=== PATIENT | female | born 1930 | race Caucasian/White ===

== ENCOUNTER 2016-10-29 14:56 | Inpatient (IN) | payer OTHER ==
--- NOTE | ~2016-10-29 | OP ---
Record Of Operation [facility] [address] [place]. [address] NAME: SARA DALAL : 34 STATUS : ADM IN [facility]#: [id number] AGE: 86 ADM/REG DATE : 10/29/16 MR#: [id number] REPORT SERV DATE: 11/12/16 DICTATED BY: SHELLY ADAM DATE: 11/12/16 REPORT STATUS : Draft TRANSCRIBED BY: MODL DATE: 11/12/16 DATE OF PROCEDURE: PROCEDURE: Bronchoscopy with airway inspection and lavage. INDICATION FOR PROCEDURE: The patient has a persistent cough, wheezing, lower lobe atelectasis on the left side concerning for a foreign airway. PREOPERATIVE DIAGNOSIS: Left lower lobe atelectasis. POSTOPERATIVE DIAGNOSIS: Acute pneumonia. PROCEDURE NOTE: The patient was brought to the bronchoscopy suite, Anesthesia provided sedation and airway protection through an LMA. We began the procedure with placing the bronchoscope through the LMA. Vocal cords were normal, sprayed lidocaine over the vocal cords and intubated with placing about lidocaine down the trachea. The patient did have an anterior area of erythema on the trachea and the endobronchial mucosa. The patient had some significant secretions throughout the lungs bilaterally, but more prominent on the left side. These were suctioned, they are very tenacious. We had to take out the scope twice as they would not go through the suction channel. We then conducted a bronchoalveolar lavage of the left lower lobe, we had minimal airway trauma with minimal bleeding that was achieved for hemostasis at the end of the procedure. Therefore, lavage was done in the left lower lobe, no foreign airway abnormality was noted. The patient tolerated the procedure well with regard to vital signs. We then removed the bronchoscope, no damage or other abnormality was noted to the vocal cords. OUTCOME: Successful bronchoscopy for bronchoalveolar lavage and removal of secretions bilaterally left greater than right. PLAN: At this moment in time, continue to hold the Eliquis for another 24 hours. Please follow up sputum culture. The patient does have some drug allergies and therefore, we will go back to Levaquin for which she was on, if there is gram-positive cocci. I would recommend starting vancomycin in case there is MRSA. We would also start clindamycin and tailor the antibiotics depending on the sputum culture results. Therefore, at this moment in time, we will start clindamycin and Levaquin for gram-negative coverage. HFQ/MODL Shelly Adam MD / [id number] CC: Record Of Operation [address] [place] [address] NAME: DALALSARA Lopez : 34 STATUS : ADM IN [facility]#: [id number] AGE: 86 ADM/REG DATE : 10/29/16 MR#: [id number] REPORT SERV DATE: 11/12/16 DICTATED BY: SHELLY ADAM DATE: 11/12/16 REPORT STATUS : Draft TRANSCRIBED BY: JONATHAN DATE: 11/12/16 MD Nichole Hernandez MD
--- NOTE | ~2016-10-29 | DS ---
Discharge Summary [facility] [id number] [place]. [address] NAME: SARA DALAL : 34 STATUS : DIS IN PAT#: [id number] AGE: 86 ADM/REG DATE : 10/29/16 MR#: [id number] REPORT SERV DATE: 11/27/16 DICTATED BY: MEGAN RASMUSSEN DATE: 11/26/16 REPORT STATUS : Draft TRANSCRIBED BY: JONATHAN DATE: 11/26/16 Data Collection from hospitalization DISCHARGE DIAGNOSES: 1. Nonischemic cardiomyopathy. 2. Paroxysmal atrial fibrillation with rapid ventricular response. 3. Acute/chronic systolic congestive heart failure. 4. Chronic obstructive pulmonary disease. 5. Chronic kidney disease. 6. Sick sinus syndrome, status post permanent pacemaker. 7. Hypertension. 8. History of breast cancer. 9. 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 CONSULTATIONS: 1. MIRTHA Montes De Oca. 2. Sarah Dyson M.D. 3. Shelly Adam MD. 4. Sintia Guan MD. PROCEDURES: 1. Cardiac catheterization on 11/04/2016. 2. Transesophageal echocardiogram and cardioversion on 11/09/2016. 3. Bronchoscopy with airway inspection and lavage on 11/12/2016. 4. Modified barium swallow study on 11/08/2016. 5. Barium swallow esophagram on 11/08/2016. 6. CT scan of the chest without contrast on 11/09/2016. 7. CT scan of the neck without contrast on 11/09/2016. PATHOLOGY: Left lower lobe bronchus, bronchoalveolar lavage (thin prep) - mild squamous atypia, nondiagnostic. DISCHARGE MEDICATIONS: Ventolin two puffs via inhaler as needed, albuterol one nebulized inhalation as needed, Xanax 1 mg at bedtime, Eliquis 5 mg twice a day, aspirin 81 mg every morning, Lipitor 40 mg at bedtime, vitamin D 1000 units at bedtime, Restasis one drop twice a day as needed, Lanoxin 0.125 mg daily, Lexapro 10 mg at bedtime, Flonase nasal spray one spray nasally twice a day, Advair Diskus one puff via inhaler twice a day, Lasix 20 mg twice a day, Prinivil 5 mg daily, Toprol-XL 100 mg every morning, Prilosec 20 mg every morning, Aldactone 12.5 mg daily, and Ultram 50 mg twice a day as needed. CONDITION AT DISCHARGE: Stable. DISPOSITION: The patient was discharged home on a low-sodium, low-cholesterol, cardiac diet with 1500 mL fluid restriction and activities as instructed. She would follow up with Dr. Stevenson Agarwal as instructed. She would follow up with Dr. Jonas Orr on 12/10/2016. She would follow up with Dr. Nichole Correa seven days following discharge. She would follow up with Dr. Shelly Adam as instructed. She would follow up with Dr. Sintia Guan two to four weeks following discharge. Discharge Summary [facility] [address] [place]. [address] NAME: SARA DALAL : 34 STATUS : DIS IN [facility]#: [id number] AGE: 86 ADM/REG DATE : 10/29/16 MR#: [id number] REPORT SERV DATE: 11/27/16 DICTATED BY: MEGAN RASMUSSEN DATE: 11/26/16 REPORT STATUS : Draft TRANSCRIBED BY: JONATHAN DATE: 11/26/16 HOSPITAL COURSE: This is an 86-year-old female who has a history of paroxysmal atrial fibrillation. She has an approximate 10- to 14-day history of dizziness, dyspnea, weight gain, lower extremity edema, and nausea. About 14 days prior to this admission, the patient began to have symptoms of extreme fatigue, dizziness, and near syncope. She requested to be brought to [facility], but due to diversion status, was brought instead to [facility]. She was there, diagnosed apparently with asymptomatic bradyarrhythmia. According to her history, it sounds as if a temporary transvenous pacemaker was placed two weeks prior to this admission. She initially underwent placement of a dual-chamber permanent pacemaker the following Tuesday. She reports that she was experiencing weight gain and dyspnea at the time of her hospitalization. She continued to have these symptoms at the time of her hospital discharge. She reports that she has never returned to her baseline health status since discharge from [facility]. She presented to the Cardiology Clinic on the day of this admission and was found to have atrial fibrillation with rapid ventricular response. She was also complaining of dyspnea, nausea, and possibly dark, tarry bowel movements. She was complaining of some abdominal pain on the day prior to this admission, but she says this has now resolved. She was sent to the [facility] Emergency Room for further evaluation due to rapid ventricular response and apparent decompensated heart failure. She was admitted to the hospital for further evaluation and treatment. Upon admission, she had evidence of volume overload. Creatinine level was 1.05. Troponin I was normal at less than 0.02. She was started on IV Bumex. Transthoracic echocardiogram would be obtained to ensure that the patient's left ventricular systolic function had not worsened since 2013. Given the patient's abnormal EKG as well as her advanced age, it may be reasonable to pursue some type of workup for myocardial ischemia. According to the patient, she has never had a cardiac catheterization and has no recent stress testing. She denies chest pain, however. Myocardial infarction had been excluded. A thyroid function panel was going to be checked. Cardizem drip was begun for rate control. We would consider increasing the patient's metoprolol dose as necessary, and we would consider screening for sleep apnea. She has a urinary tract infection and was started on Bactrim DS. She had a recent pacemaker implantation. The following day, she felt much improved. She remained on Cardizem drip. Her heart rate was in the 80 to 90 [id number] range. Toprol-XL was increased. Cardizem drip was being weaned as tolerated. Bumex was continued. On 10/31/2016, she felt improved. She was in atrial fibrillation with demand pacing. Bumex was held secondary to increasing creatinine. Creatinine level was now 1.62. She still appeared to be volume overloaded. Bactrim was going to be stopped at this time. Because of the elevated creatinine, lisinopril was also held. The following day, she still had severe shortness of breath. She remained in atrial fibrillation. Creatinine level was 1.99. Metoprolol was continued. She was seen by MIRTHA Montes De Oca, regarding acute kidney injury. On arrival, her creatinine level was 0.9. She has been diuresed since arrival. She does have some urinary incontinence this visit. Her urination was without difficulty. She has been diuresed and her breathing was much better. She felt much better. There was concern for urinary tract infection on arrival. There was a high white blood cell count and rare bacteria. The urine culture was contaminated. She had been placed on Bactrim. She said she had taken Bactrim before without any issues. Creatinine had risen to 1.9. She was felt to have acute kidney injury, probably multifactorial and certainly could be because of Bactrim. Urine was going to be checked for eosinophils. Urine studies were going to be Discharge Summary [facility] [address] [place]. [address] NAME: SARA DALAL : 34 STATUS : DIS IN PAT#: [id number] AGE: 86 ADM/REG DATE : 10/29/16 MR#: [id number] REPORT SERV DATE: 11/27/16 DICTATED BY: MEGAN RASMUSSEN DATE: 11/26/16 REPORT STATUS : Draft TRANSCRIBED BY: JONATHAN DATE: 11/26/16 checked, and we would quantify her proteinuria. A bladder scan would be performed postvoid. She still had a bit of edema. Diuretics would be restarted the following day. The Bactrim had been stopped. On 11/02/2016, her condition had generally improved. Creatinine level was now 1.37. Diuretics were going to be restarted. A swallow evaluation was requested. On 11/03/2016, she still had a cough. Speech-Language Pathology performed a bedside swallow study. There were no overt signs or symptoms of aspiration. Aspiration precautions were in place. She had no complaints of chest pain. She had developed a frequent productive cough. Her edema was greatly improved. Echocardiogram had shown an ejection fraction of 40%. There was moderate right ventricle dysfunction. Telemetry revealed atrial fibrillation in the 90s-100s. Tessalon Perles were going to be provided. On 11/04/2016, she continued to cough, but it was slightly better. She was able to lie flat. She had no chest pain or shortness of breath at rest except when coughing. She remained in atrial fibrillation with heart rate ranging between 70s and 110s. She was being transitioned to oral diuresis. Her acute kidney injury/chronic kidney disease had resolved. The next day, her cough was getting more productive. She was more dyspneic. She remained afebrile. Eliquis had been resumed. Cardiac catheterization had been performed. The patient has nonischemic cardiomyopathy with an ejection fraction of 40%. There was only mild LAD stenosis. On 11/06/2016, she still had a productive cough. Creatinine level was 1.03. Diltiazem drip was being weaned. Digoxin was added. Eliquis was continued. Lasix was adjusted. A trial of Mucinex was going to begin. She was seen by Dr. Sarah Dyson regarding COPD exacerbation with acute bronchitis. The patient had never been a smoker. 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 She currently denied any chest pain or more increasing shortness of breath than usual. Chest x-ray showed some bilateral pleural effusions and some atelectatic changes on the bibasilar, and no acute infiltrate could be appreciated. It was felt that the patient has chronic obstructive pulmonary disease exacerbation with acute bronchitis. She was going to be placed on oxygen, IV steroids, and IV Solu-Medrol. DuoNebs would also be provided with aggressive pulmonary toilet and Dulera, Mucinex, Nasonex, and Tessalon Perles as needed. We would check a sputum Gram stain and culture. On 11/08/2016, a modified barium swallow study was performed. The patient exhibited deep penetration of thin liquids via straw. Aspiration precautions remained in place. Modified barium swallow esophagram was also performed. 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 Steroids were decreased. On 11/09/2016, transesophageal echocardiogram cardioversion was performed. There was no left atrial or left atrial appendage thrombus. There was moderate biatrial enlargement. There was normal left ventricular size with moderate systolic dysfunction and ejection fraction of 40%. There was mildly enlarged right ventricle with low normal systolic function. There was a successful cardioversion to ventricular-paced rhythm. A CT scan of the chest without contrast was also performed. The patient still had a cough. Steroids were decreased. She had no shortness of breath or palpitations. A CT scan of the neck without contrast was also performed. On 11/10/2016, she was doing well. She had no acute complaints. Her cough had improved. Supportive care continued. She said she was feeling great until the coughing spells would happen. She had a difficult time eating her lunch due to coughing. Eliquis, metoprolol, and digoxin were continued. Oral Lasix was also continued as well as her breathing treatments. She was seen in consultation by Dr. Shelly Adam regarding left lower lobe Discharge [address] [place]. [address] NAME: SARA DALAL : 34 STATUS : DIS IN PAT#: [id number] AGE: 86 ADM/REG DATE : 10/29/16 MR#: [id number] REPORT SERV DATE: 11/27/16 DICTATED BY: MEGAN RASMUSSEN DATE: 11/26/16 REPORT STATUS : Draft TRANSCRIBED BY: MODLeigh DATE: 11/26/16 pneumonia and/or mucus plug. The patient had received Solu-Medrol and inhalers due to non- improvement in her symptoms. The CT scan had shown an abnormality in the right lower lobe, which looked to be consistent with possible mucus plugs for aspiration versus pneumonia. This was a new finding. CT scan of the chest showed evidence of previous histoplasmosis, possible aspiration or mucus plug in the left lower lobe with left lower lobe complete atelectasis and minimal surrounding effusion. She seems to have a clinical syndrome with chronic aspiration even prior to this. It was unclear if she had aspirated some food contents. At this moment in time, he wanted to conduct a more conservative approach with nebulizers for which the patient was on, but wanted to add EzPAP treatment with flutter valve. The patient was already receiving steroids. Chest x-ray would be performed in 24 hours, and if the patient still had left lower lobe atelectasis, we would then transition to a bronchoscopy for treatment. We would have the patient walk every six hours as she was getting weaker. Unfortunately, aspiration in this age group with the multiple comorbid conditions of heart failure, atrial fibrillation, and chronic kidney disease with what seems to be chronic hypercapnia, the patient is not the best bronchoscopy candidate, which is why we were choosing a more conservative approach. A long discussion was held with the patient's family. If the patient was unable to clear the mucus plug on her own for which she was having an almost continuous cough and showed no quality of life, we would then, therefore, proceed with bronchoscopy possibly in 48 hours from now if she did not get better with the above treatment. She was evaluated by Physical Therapy. On 11/12/2016, the patient had a persistent cough, wheezing, and lower lobe atelectasis on the left side concerning for a torn airway. It was felt that she should undergo bronchoscopy with airway inspection and lavage. She was taken to the bronchoscopy suite by Dr. Shelly Adam where she underwent the above-mentioned procedure. She tolerated this well, and there were no complications. The patient was in a normal sinus rhythm. Eliquis was being held at this time. Lasix was continued. Lisinopril was increased. On 11/13/2016, the patient was seen by Dr. Sintia Guan regarding dysphagia. Barium swallow earlier this admission had shown some moderate tertiary contraction and a small sliding hiatal hernia. There was no esophageal stricture seen. The barium tablet had passed through without any delay. The symptomatic dysphagia did not appear to be any significant aspiration on modified barium swallow; therefore, there was no indication for percutaneous endoscopic gastrostomy tube. No esophageal stricture was seen on barium swallow. There was no indication for dilations. We would continue proton-pump inhibitor as this may be a typical symptom of chronic reflux as well. She may have some dysmotility seen with her moderate tertiary contractions. However, there were no truly significant effective medications to help with this. Continued followup with Speech Pathology was recommended. The patient was instructed to chew her food very well and this can be followed by liquids. She seemed to be feeling better. Mouth sores had improved with swish and swallow. Metoprolol and lisinopril were continued. Spironolactone was added. Nystatin swish and swallow had been added to her regimen. The following day, she continued to have a GI bleed, but it was slowing down. She was able to lie flat without dyspnea. She was in a paced rhythm. Discharge planning was performed. On 11/15/2016, she was wanting to go home. She was alert and cooperative. It was felt that her acute lower GI bleed was likely hemorrhoidal. Hemoglobin and hematocrit remained stable. She said she felt like she was back to her normal self. Discharge instructions were given. Due to her improved and stable condition, she was discharged home with the above-stated instructions. Discharge Summary [address] [place]. [address] NAME: SARA DALAL : 34 STATUS : DIS IN PAT#: [id number] AGE: 86 ADM/REG DATE : 10/29/16 MR#: [id number] REPORT SERV DATE: 11/27/16 DICTATED BY: MEGAN RASMUSSEN DATE: 11/26/16 REPORT STATUS : Draft TRANSCRIBED BY: JONATHAN DATE: 11/26/16 Information collected by: Mikayla Brandt I submit the above information as my discharge summary. OZ/JONATHAN Megan Rasmussen MD / [id number] CC: MD Nichole Hernandez MD Jessica Craig, MIRTHA Guan MD
--- NOTE | ~2016-10-29 | HP ---
History And Physical [facility] [address] [place]. [address] NAME: SARA BOWER : 32 STATUS : ADM IN [facility]#: [id number] AGE: 86 ADM/REG DATE : 10/29/16 MR#: [id number] REPORT SERV DATE: 10/30/16 DICTATED BY: MEGAN RASMUSSEN DATE: 10/29/16 REPORT STATUS : Draft TRANSCRIBED BY: MODL DATE: 10/29/16 DATE OF ADMISSION: 10/29/2016 CARDIOLOGY ADMISSION HISTORY AND PHYSICAL IDENTIFYING DATA: The patient is an 86-year-old woman with a history of paroxysmal atrial fibrillation. CHIEF COMPLAINT: Approximately 10 to 14-day history of dizziness, dyspnea, weight gain, lower extremity edema, and nausea. HISTORY OF PRESENT ILLNESS: Ms. Bower is an 86-year-old woman who is a patient of Jonas Orr. The patient apparently was in her usual state of health until about 14 days ago. The patient was having symptoms of extreme fatigue, dizziness, and near syncope. She requested to be brought to [facility], but due to diversion status was brought instead to [facility]. There, the patient was apparently diagnosed with asymptomatic bradyarrhythmia. According to the patient's history, it sounds as if a temporary transvenous pacemaker was placed Tuesday 2 weeks ago. The patient eventually underwent placement of a dual-chamber permanent pacemaker the following Tuesday. The patient reports that she was experiencing weight gain and dyspnea at the time of her hospitalization. She continued to have these symptoms at the time of hospital discharge. The patient reports that she has never returned to her baseline health status since discharge from [facility]. She presented to Cardiology Clinic today. She was found to have atrial fibrillation with a rapid ventricular response. She was also complaining of dyspnea, nausea, and possibly dark tarry bowel movement. The patient was complaining of some abdominal pain yesterday, but reports that today this has resolved. The patient was sent to [facility] Emergency Room for further evaluation due to her rapid ventricular response and apparent decompensated heart failure. PAST MEDICAL HISTORY: 1. Paroxysmal atrial fibrillation. 2. Chronic systolic heart failure with baseline ejection fraction of 45% based on an echocardiogram from the year 2013. 3. History of breast cancer, status post surgical care and tamoxifen. 4. Hypertension. 5. Frequent urinary tract infections. 6. COPD. 7. 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 PAST SURGICAL HISTORY: 1. Bilateral mastectomy. 2. Bilateral total knee replacement surgery. 3. Recent dual-chamber pacemaker as noted above. 4. Implantation of a neurostimulator for apparent incontinence/frequent bowel movements. 5. Cholecystectomy. 6. Appendectomy. History And Physical [address] [address] NAME: SARA BOWER : 32 STATUS : ADM IN [facility]#: [id number] AGE: 86 ADM/REG DATE : 10/29/16 MR#: [id number] REPORT SERV DATE: 10/30/16 DICTATED BY: MEGAN RASMUSSEN DATE: 10/29/16 REPORT STATUS : Draft TRANSCRIBED BY: JONATHAN DATE: 10/29/16 7. Back surgery, not otherwise specified. FAMILY HISTORY: Negative for early coronary heart disease or sudden cardiac . SOCIAL HISTORY: The patient has no known history of tobacco, alcohol, or drug use. She is . ALLERGIES: THE PATIENT HAS DOCUMENTED ALLERGIES TO AMOXICILLIN, CEFTIN, AND CLAVULANIC ACID. SHE HAS HAD ADVERSE REACTIONS TO OPIOID AND OPIOID ANALOGS. HOME MEDICATIONS: 1. Albuterol inhaler 2 puffs q.2 hours as needed for shortness of breath. 2. Albuterol nebulizers daily as needed for shortness of breath. 3. Xanax 1 mg p.o. at bedtime. 4. Eliquis 5 mg p.o. twice daily. 5. Aspirin 81 mg p.o. daily. 6. Vitamin D 1000 units p.o. at bedtime. 7. Cyclosporine 0.05% ophthalmologic drops twice daily as needed for dryness. 8. Lexapro 10 mg p.o. at bedtime. 9. Advair Diskus 250/50 mcg 1 puff twice daily. 10.Lisinopril 10 mg p.o. q.a.m. 11.Metoprolol succinate 100 mg p.o. q.a.m. 12.Omeprazole 20 mg p.o. q.a.m. 13.Tramadol 50 mg p.o. twice daily as needed for pain. REVIEW OF SYSTEMS: A complete 12-system review was performed. This is negative for dysuria, but positive for increased urinary frequency. The patient denies fever or chills. She denies vomiting, but does report nausea as noted above. The remainder of the 10-system review is noncontributory except for the pertinent positives and negatives noted in the history of present illness above. PHYSICAL EXAMINATION: VITAL SIGNS: Temperature is 98.2 degrees Fahrenheit, blood pressure is 120/71 mmHg, heart rate is currently 120 beats per minute and irregularly irregular, respirations 20, oxygen saturation is 100% on a 2 L nasal cannula. CONSTITUTIONAL: The patient is an overweight elderly white woman, who appears fatigued, but is in no acute distress. The patient is breathing easily and is able to speak in complete sentences. EYES: PERRL, EOMI, clear conjunctiva. HEAD/MNT: NCAT with moist mucous membranes and grossly normal hard and soft palate. CARDIOVASCULAR: There is an irregularly irregular rhythm with a variable S1 and a physiologically split second heart sound. No significant murmurs, rubs, or gallops are noted. The jugular venous pressure does appear to be grossly elevated to approximately 14 cm. NECK: There appears to be a mild hematoma in the patient's right neck at the site of her recent transvenous pacemaker. This is soft. The neck is otherwise supple with normal range History And Physical [address] [address] NAME: SARA BOWER : 32 STATUS : ADM IN [facility]#: [id number] AGE: 86 ADM/REG DATE : 10/29/16 MR#: [id number] REPORT SERV DATE: 10/30/16 DICTATED BY: MEGAN RASMUSSEN DATE: 10/29/16 REPORT STATUS : Draft TRANSCRIBED BY: JONATHAN DATE: 10/29/16 of motion. PULMONARY: The lungs are grossly clear to auscultation bilaterally with slightly decreased air movement globally. No rales are appreciated. There is no dullness to percussion. ABDOMINAL: There is [id number] abdominal distention, with no tenderness to palpation. Bowel sounds are present and normoactive. No organomegaly is noted. EXTREMITIES: There is 2+ pitting edema below the knees bilaterally. MUSCULOSKELETAL: Grossly normal strength and range of motion in all extremities INTEGUMENTARY: Skin appears intact with no bruises, wounds or active lesions noted NEURO/PSYC: Alert and oriented x3, with no dysarthria, facial droop or lateralizing weakness noted. ANTERIOR CHEST WALL: The patient's left-sided pacemaker implant site appears normal, with a well-healed wound, and no evidence of erythema, fluctuance, or erosion. 12-LEAD EKG: The 12-lead EKG shows atrial fibrillation with a rapid ventricular response. Ventricular rate is 119 beats per minute. There is poor anterior R-wave progression. Previous anterior myocardial infarction cannot be excluded. There are nonspecific ST/T-wave abnormalities. There is low voltage in the limb leads noted. CHEST X-RAY: The chest x-ray shows a dual-chamber pacemaker with leads in appropriate positions in the right atrium and right ventricle. There is no acute cardiopulmonary process noted. There is no evidence of pneumothorax. LABORATORY DATA: Electrolytes show a sodium of 148, potassium 4.4, chloride is 110, CO2 of 28, BUN 29, creatinine is 1.05, glucose 96, calcium is 8.9, magnesium 2.2. Troponin I is normal at less than 0.02. Cell count show a white blood cell count of 7.7, hemoglobin 12.3, hematocrit 39, platelets 146, INR is 1.6, PTT 30. B-type natriuretic peptide is grossly elevated at 1209. Urinalysis shows a hazy appearance with 100 protein, 2.0 urobilinogen, moderate leukocyte esterase. There were 6 red blood cells per high-powered field, 38 white blood cells per high-powered field, rare bacteria and 3 epithelial cells noted. ASSESSMENT AND PLAN: 1. Acute on chronic systolic congestive heart failure: The patient has evidence of volume overload. In addition to rate control for the patient's atrial fibrillation, she will be started on Bumex 1 mg IV q.12 hours as tolerated. A transthoracic echocardiogram will be obtained, to ensure the patient's left ventricular systolic function is not worsened since the year 2013. Given the patient's abnormal EKG, as well as her advanced age, it may be reasonable to pursue some type of workup for myocardial ischemia. According to the patient, she has never had a cardiac catheterization, and has had no recent stress testing. She denies chest pain, however. Myocardial infarction has been excluded. 2. Atrial fibrillation with rapid ventricular response: We will check a thyroid function panel. The patient will be started on a Cardizem drip for rate control. We will consider increasing the patient's metoprolol dose if necessary. Consider screening for sleep apnea. 3. Urinary tract infection: The patient apparently has a penicillin allergy. She will be History And Physical [address] [address] NAME: SARA BOWER : 32 STATUS : ADM IN [facility]#: [id number] AGE: 86 ADM/REG DATE : 10/29/16 MR#: [id number] REPORT SERV DATE: 10/30/16 DICTATED BY: MEGAN RASMUSSEN DATE: 10/29/16 REPORT STATUS : Draft TRANSCRIBED BY: JONATHAN DATE: 10/29/16 started on Bactrim DS 1 tablet q.12 hours x7 days, given a possible complicated urinary tract infection. 4. Recent pacemaker implantation: Records will be requested from [facility] to clarify the details of the patient's recent admission and pacemaker implantation. REBA/JONATHAN Megan Rasmussen MD / [id number]
--- NOTE | ~2016-10-29 | OP ---
Record Of Operation [facility] [address] [place]. [address] NAME: SARA DALAL : 32 STATUS : ADM IN PAT#: [id number] AGE: 86 ADM/REG DATE : 10/29/16 MR#: [id number] REPORT SERV DATE: 11/09/16 DICTATED BY: ISRA HERRERA DATE: 11/09/16 REPORT STATUS : Draft TRANSCRIBED BY: MODL DATE: 11/09/16 DATE OF PROCEDURE: 11/09/2016 FELICIA CARDIOVERSION REPORT INDICATIONS: An 86-year-old female with atrial fibrillation and a history of permanent pacemaker placement. Informed consent was obtained, signed on the chart prior to proceeding. A time-out was performed. Sedation was per Anesthesia and esophageal intubation was without difficulty. TECH: TD. STUDY QUALITY: The quality of study was adequate. Please refer to the full transthoracic echocardiogram report from 10/30/2016 for further details. FINDINGS: 1. Left atrium is moderately dilated. The left atrial appendage was large and multilobed. There is no thrombus identified. There are prominent pectinates. Left atrial appendage color Doppler findings were normal with spectral Doppler velocity of 30-40 cm/second. 2. The left ventricle was normal in size with visually estimated LVEF of 40%. There was global hypocontractility. 3. The right atrium is moderately dilated. The superior and inferior vena cava appeared normal. Pacemaker lead is noted. 4. The right ventricle is mildly enlarged with low normal systolic function. VALVES: 1. The aortic valve morphology is trileaflet. The leaflets were thickened with adequate mobility. Aortic regurgitation was not assessed. 2. The mitral morphology is normal with mildly thickened leaflets. The leaflets were fully mobile. Mitral regurgitation was not assessed. There is no prolapse. 3. The pulmonic valve was grossly normal. Pulmonic regurgitation was not assessed. 4. The tricuspid valve morphology was normal with fully mobile leaflets. Tricuspid regurgitation was not assessed. OTHER: The interatrial septum was evaluated with multiple angulations and was intact by visual inspection with no evidence of interatrial shunt seen by color Doppler. There is no pericardial effusion. There was a trivial pleural effusion seen. The descending thoracic aorta was normal in caliber with no aneurysmal dilatation and no dissection seen. CARDIOVERSION: A single synchronized 200 joule biphasic energy shock was delivered with the pads in the anterior-posterior position with successful cardioversion from atrial fibrillation to a ventricular paced rhythm. Device interrogation is pending. Record Of Operation [facility] [address] [place]. [address] NAME: SARA DALAL : 32 STATUS : ADM IN PAT#: [id number] AGE: 86 ADM/REG DATE : 10/29/16 MR#: [id number] REPORT SERV DATE: 11/09/16 DICTATED BY: ISRA HERRERA. DATE: 11/09/16 REPORT STATUS : Draft TRANSCRIBED BY: JONATHAN DATE: 11/09/16 CONCLUSIONS: 1. No left atrial or left atrial appendage thrombus. 2. Moderate biatrial enlargement. 3. Normal LV size with moderate systolic dysfunction, EF 40%. 4. Mildly enlarged RV with low normal systolic function. 5. Successful cardioversion to ventricular paced rhythm. AEA/RUBENL Isra Herrera M.D. / [id number] CC: MD Nichole Hernandez MD
--- NOTE | ~2016-10-29 | CN ---
Consultation Report [facility] [address] [place]. [address] NAME: SARA BOWER : 32 STATUS : ADM IN PAT#: [id number] AGE: 86 ADM/REG DATE : 10/29/16 MR#: [id number] REPORT SERV DATE: 11/01/16 DICTATED BY: DATE: REPORT STATUS : Draft TRANSCRIBED BY: MODL DATE: 11/01/16 CONSULTATION DATE OF CONSULTATION: REASON FOR CONSULTATION: Acute kidney injury. HISTORY OF PRESENT ILLNESS: Ms. Bower is an 86-year-old white female with no history of kidney disease in the past, who recently underwent a pacemaker placement at [facility] for symptomatic bradycardia and states that she has not been feeling well since with increasing shortness of breath and nausea, presented to the hospital and was found to be in CHF exacerbation. Creatinine on arrival was 0.9. She has been diuresed since arrival. She has had Afib with RVR. Rate is better controlled, but still not below 100. She has had some low blood pressures in the 90s. She does have some urinary incontinence, but states her urination is without difficulty. She has been diuresed and her breathing is much better. She feels much better, and there was concern over urinary tract infection on her arrival and urine with high white blood cell count and rare bacteria. Culture is contaminated. She was placed on Bactrim. She states she has had Bactrim before without any issues. Creatinine has gone up to 1.9, and we have been asked to see the patient in consultation. PAST MEDICAL HISTORY: Paroxysmal atrial fibrillation, bradycardia with pacemaker, UTIs, hypertension, histoplasmosis, COPD, history of CHF with EF of 40%, breast cancer, bilateral mastectomy, cholecystectomy, appendectomy, and bilateral knee replacements. FAMILY MEDICAL HISTORY: No end-stage renal disease. SOCIAL HISTORY: She is , lives with her . No tobacco, alcohol, or illicit drug use. ALLERGIES: AUGMENTIN AND CEFTIN WITH REACTIONS TO PAIN MEDICATIONS. MEDICATIONS: Medications at the time of consultation: Xanax, Eliquis, aspirin, vitamin D, Lexapro, Toprol, and Protonix. REVIEW OF SYSTEMS: A 12-point review of systems is obtained and negative with the exception of that in HPI. PHYSICAL EXAMINATION: VITAL SIGNS: Temperature 96.6, blood pressure 118/64, pulse 103, respiratory rate 20, and O2 saturation is 93%. GENERAL: This is a pleasant, cooperative white female. She is awake, alert, and oriented, in no acute distress. Answers questions appropriately. HEENT: Normocephalic and atraumatic. Conjunctivae clear. Sclerae anicteric. Pupils are Consultation Report [place] [id number]. [address] NAME: SARA BOWER : 32 STATUS : ADM IN [facility]#: [id number] AGE: 86 ADM/REG DATE : 10/29/16 MR#: [id number] REPORT SERV DATE: 11/01/16 DICTATED BY: DATE: REPORT STATUS : Draft TRANSCRIBED BY: MODL DATE: 11/01/16 equal and round. Oral mucosa is moist. NECK: Supple. Neck veins flat. RESPIRATIONS: Even and unlabored. Breath sounds clear to auscultation. HEART: Rate is irregularly irregular. ABDOMEN: Soft, nontender. Bowel sounds active. No masses or hepatosplenomegaly. No bruits. No CVA tenderness. BACK: Within normal limits. EXTREMITIES: She has 2+ pitting edema. SKIN: Warm, dry, and intact. No unusual rashes or skin lesions. NEUROLOGIC: No focal deficits. Mood and affect, pleasant appropriate. PERTINENT LABORATORIES AND X-RAYS: Sodium 142, potassium 4.4, chloride 103, CO2 of 29, BUN 38, creatinine 1.9, and calcium 8.7. WBC 7, H and H of 10 and 34, and platelets 167,000. IMPRESSION: 1. Acute kidney injury. 2. Atrial fibrillation. 3. Acute exacerbation of congestive heart failure. 4. Recent bradycardia, status post pacemaker at [place]. PLAN/RECOMMENDATIONS: Acute kidney injury, probably multifactorial, certainly could be because of Bactrim. We will check urine for eosinophils. Check urine studies and quantify her proteinuria. Check bladder scan postvoid. She has quite a bit of edema still left. We will restart diuretics tomorrow and is currently on hold. Bactrim has been stopped. We will follow along with you. Thank you for the consultation. REBA/JONATHAN MIRTHA Montes De Oca / [id number] CC: MD Nichole Hernandez MD
--- NOTE | ~2016-10-29 | CN ---
Consultation Report [facility] [address] [place]. [address] NAME: SARA BOWER : 32 STATUS : ADM IN [facility]#: [id number] AGE: 86 ADM/REG DATE : 10/29/16 MR#: [id number] REPORT SERV DATE: 11/11/16 DICTATED BY: SHELLY ADAM DATE: 11/10/16 REPORT STATUS : Draft TRANSCRIBED BY: MODL DATE: 11/10/16 PULMONARY CONSULT DATE OF CONSULTATION: 11/10/2016 REASON FOR CONSULTATION: Left lower lobe pneumonia and/or mucus plug. CHIEF COMPLAINT: Worsening cough over the last 24 hours. HISTORY OF PRESENT ILLNESS: Ms Bower is an 86-year-old female, who was admitted around 12 days ago for what was noted at that time of acute on chronic systolic congestive heart failure in atrial fibrillation with RVR. She had a recent pacemaker placed at an outside hospital. The family notes that the patient has had difficulty with pulmonary symptoms over the last several days. Internal Medicine was actually consulted and the patient was treated for an acute exacerbation of COPD, however, the patient still had continued symptoms with a cough. The patient was given Solu-Medrol and inhalers. Due to the nonimprovement in symptoms, a CT scan was ordered in which the patient had an abnormality in the right lower lobe which looks to be consistent with possibly mucus plug or aspiration versus pneumonia. This is a new finding. Otherwise, family is at the bedside. They had no further complaints. PAST MEDICAL HISTORY: Congestive heart failure, atrial fibrillation, history of breast cancer, history of histoplasmosis, history of bilateral mastectomies, hypertension, osteoarthritis, degenerative joint disease, recent pacemaker placement, knee replacement, and implantation of neurostimulator. MEDICATIONS: Home medication list reviewed, the patient is on Advair at home. Current medications: Current medication list reviewed in which the patient is on Brovana, DuoNeb, Eliquis, Levaquin, Pulmicort. ALLERGIES: AUGMENTIN, CEPHALOSPORINS. FAMILY HISTORY: Hypertension. SOCIAL HISTORY: The patient's family is currently at the bedside, very supportive. REVIEW OF SYSTEMS: All pertinent review of systems reviewed and is otherwise negative, the patient was unable to give her review of systems due to the significant amount of coughing. Family was giving most of the history. PHYSICAL EXAMINATION: VITAL SIGNS: Afebrile, heart rate 60s, respiratory rate 20, oxygen saturation currently 95% Consultation Report [place] [id number] [place]. [address] NAME: SARA BOWER : 32 STATUS : ADM IN PAT#: [id number] AGE: 86 ADM/REG DATE : 10/29/16 MR#: [id number] REPORT SERV DATE: 11/11/16 DICTATED BY: SHELLY ADAM DATE: 11/10/16 REPORT STATUS : Draft TRANSCRIBED BY: MODL DATE: 11/10/16 on 3 L, blood pressure anywhere between 140s and 180s. GENERAL: The patient is sitting up in a chair. She does have significant coughing during the clinical encounter, but no respiratory distress. HEENT: No JVD noted. CARDIAC: Slight 2/6 murmur, but otherwise, nontachycardic. PULMONARY: Decreased breath sounds bilaterally with significant coughing and mild to moderate wheezing. ABDOMEN: Soft, nontender, nondistended. LOWER EXTREMITIES: Trace lower extremity edema. LABORATORY EXAMINATION: BNP 460. Chronic kidney disease. Bicarbonate is 35. CT scan of the chest shows evidence of previous histoplasmosis, possible aspiration or mucus plug in the left lower lobe with left lower lobe complete atelectasis and minimal surrounding effusion. ASSESSMENT AND PLAN: Ms Bower is an 86-year-old female with a past medical history noted with the above-named complaints. She seems to have a clinical syndrome of chronic aspiration even prior to this. Unclear if she aspirated some food content. At this moment in time, I would like to conduct a more conservative approach with nebulizers for which the patient is on, but I would add EzPAP treatments and flutter valve. The patient is already on steroids. We will obtain a chest x-ray in 24 hours, and if the patient still has left lower lobe atelectasis, would then transition to a bronchoscopy for treatment. We also will have the patient walk every six hours as she is getting weaker. Unfortunately, aspiration in this age group with the multiple comorbid conditions of heart failure, atrial fibrillation, and chronic kidney disease with what seems to be chronic hypercapnia, the patient is not the best bronchoscopy candidate, and hence why we are choosing a more conservative approach. I discussed this at length with the family, however, if she is unable to clear the mucus plug on her own, for which she is having an almost continuous cough, that shows no quality of life, and then therefore, we will go forward with a bronchoscopy possibly in 48 hours from now if she does not get better with the above-named treatments. Thank you very much for this consultation, I do not see anything at this moment in time concerning for cancer, however, that is not ruled out as noted in the CT scan. HFQ/MODLeigh Shelly Adam MD / [id number] Consultation Report [address] [facility]. [address] NAME: SARA BOWER : 32 STATUS : ADM IN PAT#: [id number] AGE: 86 ADM/REG DATE : 10/29/16 MR#: [id number] REPORT SERV DATE: 11/11/16 DICTATED BY: SHELLY ADAM DATE: 11/10/16 REPORT STATUS : Draft TRANSCRIBED BY: MODLeigh DATE: 11/10/16 CC: MD Nichole Hernandez MD
--- NOTE | ~2016-10-29 | CN ---
Consultation Report [facility] [address] [place]. [address] NAME: SARA BOWER : 34 STATUS : ADM IN [facility]#: [id number] AGE: 86 ADM/REG DATE : 10/29/16 MR#: [id number] REPORT SERV DATE: 11/13/16 DICTATED BY: CHRIS GUAN DATE: 11/13/16 REPORT STATUS : Draft TRANSCRIBED BY: MODL DATE: 11/13/16 GI CONSULTATION DATE OF CONSULTATION: 11/12/2016 REASON FOR CONSULTATION: Dysphagia. HISTORY OF PRESENT ILLNESS: Ms. Bower is an 86-year-old female who was initially admitted to [facility] with symptomatic atrial fibrillation with RVR. She had been previously seen at [place] earlier this year for some bradyarrhythmia and had a temporary transvenous pacer placed and eventually dual chamber pacer. She presents with a 10- to 14-day history of dizziness, dyspnea, and lower extremity edema. She is on Eliquis. During her hospitalization, however, she had reported some dysphagia. On 11/08/2016, she had modified barium swallow performed which showed some mild pooling up to the level of the piriform sinus with thin liquid. She also had some deep laryngeal penetration. However, no aspiration was seen with any of thick consistencies. She had been working with Speech Pathology and as per staff she is on regular diet. She also had a barium swallow earlier this admission which showed some moderate tertiary contraction and a small sliding hiatal hernia. However, no esophageal stricture was seen, and the barium tablet had passed through without any delay. The patient is currently getting bronchoscopy right now and is not in her room but in discussing with her RN, she displayed no problems with swallowing. PAST MEDICAL HISTORY: Paroxysmal atrial fibrillation, systolic heart failure with an ejection fraction of 45%, breast cancer status post bilateral mastectomy, UTI, hypertension, COPD, histoplasmosis with pulmonary nodule. PAST SURGICAL HISTORY: Bilateral mastectomy, stimulator for bowel and bladder dysfunction, cholecystectomy, appendectomy, back surgery. SOCIAL HISTORY: No smoking, alcohol, or drug use. PHYSICAL EXAMINATION: The patient is not in her room as she is getting her bronchoscopy performed. However, her vital signs documented as stable. LABORATORY DATA: WBC 12, hemoglobin 13.7, hematocrit 43.2, platelets 181. INR is 1.5. Sodium 142, potassium 4, chloride 98, bicarb 38, BUN 39, creatinine 1.21, glucose 136, albumin 2.9. Modified barium swallow as well as barium swallow as dictated above without any aspiration nor any esophageal stricture, respectively. IMPRESSION AND PLAN: Symptomatic dysphagia does not appear to be any significant aspiration on modified barium swallow. Therefore, no indication for percutaneous endoscopic gastrostomy tube. No esophageal stricture as well seen on her barium swallow. Hence, no indication for dilation. I would continue PPI as this may be a typical symptom of chronic Consultation Report [place] [id number] [facility] [place]. [id number] NAME: SARA BOWER : 34 STATUS : ADM IN PAT#: [id number] AGE: 86 ADM/REG DATE : 10/29/16 MR#: [id number] REPORT SERV DATE: 11/13/16 DICTATED BY: CHRIS GUAN DATE: 11/13/16 REPORT STATUS : Draft TRANSCRIBED BY: JONATHAN DATE: 11/13/16 reflux as well. She may have some dysmotility seen with her moderate tertiary contractions. However, there were no truly significant effective medications to help with this. Would continue followup with speech pathology. If any treatment is necessary regarding therapy, make sure the patient chews her food real well, can be followed by liquid. I will discuss this with Dr. Arturo Cisneros who will see the patient over the weekend. FAISAL/JONATHAN Chris Guan MD / [id number] CC: MD Nichole Hernandez MD
--- NOTE | ~2016-10-29 | CN ---
Consultation Report [facility] [address] [place]. [address] NAME: SARA DALAL : 34 STATUS : ADM IN PAT#: [id number] AGE: 86 ADM/REG DATE : 10/29/16 MR#: [id number] REPORT SERV DATE: 11/06/16 DICTATED BY: SARAH CORNELIUS DATE: 11/06/16 REPORT STATUS : Draft TRANSCRIBED BY: MODL DATE: 11/06/16 MEDICAL CONSULT DATE OF CONSULTATION: REASON FOR CONSULTATION: COPD exacerbation with acute bronchitis for few days. HISTORY OF PRESENT ILLNESS: This is a very pleasant 86-year-old female, who is the patient of Dr. Nichole Correa, her primary care provider, whom she has a history of paroxysmal atrial fibrillation, congestive heart failure, hypertension, COPD, and history of prior histoplasmosis with chronic pulmonary nodule, frequent urinary tract infection. She has a history of bilateral breast cancer with bilateral mastectomy, degenerative joint disease, osteoarthritis, recent dual-chamber pacemaker, that she has been admitted to Cardiology Service on 10/30/2016 with paroxysmal atrial fibrillation and CHF exacerbation. The patient for two to three days has started to experience cough, initially was whitish and then turned a yellowish sputum production as well as a little bit more increasing shortness of breath with wheezing and cough. The patient has been started initially by Cardiology Service on Levaquin as well as IV Solu-Medrol with slight improvement and Hospitalist Service has been asked for consult regarding her COPD exacerbation. The patient has been never been a smoker. She thinks, she has her COPD from working prior on [employer]. Currently, the patient denies any chest pain, more increasing shortness of breath than usual. No PND or orthopnea. No palpitation. No nausea or vomiting. No diarrhea or constipation. No increased urinary frequency or urgency. No hematemesis or melena. No hematochezia. No other complaints. PAST MEDICAL HISTORY: Significant for paroxysmal atrial fibrillation, CHF, history of breast cancer, status post bilateral mastectomy, history of hypertension, frequent UTI, history of histoplasmosis with chronic pulmonary nodule, degenerative joint disease, osteoarthritis, history of dual pacemaker. PAST SURGICAL HISTORY: Bilateral total knee replacement, recent dual-chamber pacemaker, bilateral mastectomy, implantation of neurostimulator for upper and urinary incontinence, cholecystectomy, appendectomy, back surgery. FAMILY HISTORY: Significant for hypertension. ALLERGIES: SHE IS ALLERGIC TO AUGMENTIN, ALSO OPIATES, MEPERIDINE. MEDICATIONS: At home include albuterol, Xanax, Eliquis, aspirin, vitamin D, Restasis ophthalmic solution, Lexapro, Advair, Prinivil, Toprol-XL, Prilosec, Ultram. REVIEW OF SYSTEMS: A 14-point review of systems has been obtained and pertinent positive has been listed into the history of present illness. Otherwise, negative except those underlying above. Consultation Report [address] [place]. [address] NAME: SARA DALAL : 34 STATUS : ADM IN [facility]#: [id number] AGE: 86 ADM/REG DATE : 10/29/16 MR#: [id number] REPORT SERV DATE: 11/06/16 DICTATED BY: SARAH CORNELIUS DATE: 11/06/16 REPORT STATUS : Draft TRANSCRIBED BY: JONATHAN DATE: 11/06/16 PHYSICAL EXAMINATION: VITAL SIGNS: Currently, the patient is afebrile. Blood pressure 126/59, heart rate 101, respiratory rate 20, saturating 93% on 2 L of oxygen, blood sugars 90, 103, 98, and 160. GENERAL: She is a very pleasant, well-developed, well-nourished female, in no acute distress. She is alert and oriented x3. She is coughing intermittently, but she is able to speak in full sentences. She is alert and oriented x3. Nonfocal. HEENT: Show pupils equal, round, reactive to light. Extraocular movements intact. No JVD. No lymphadenopathy. No thyromegaly appreciated. CHEST: Shows bilateral air entry. Bilateral wheezes. Scattered rhonchi. No crackles appreciated. CARDIOVASCULAR: Irregularly irregular. S1, S2 positive. No S3, no S4. No murmurs, rubs, or gallops appreciated. ABDOMEN: Soft, positive bowel sounds. Nontender. No guarding. No rebound. EXTREMITIES: No clubbing, cyanosis, or edema. NEUROLOGIC: The patient is alert and oriented x3. Nonfocal. She follows commands appropriately. LABORATORY DATA: Labs from today sodium 142, potassium 4.2, chloride 99, CO2 38, BUN 31, creatinine 1, glucose 160. White count 4.4, hematocrit 39.7, platelets 156. Chest x-ray 11/05/2016 show some bilateral pleural effusions and some atelectatic changes on the bibasilar and no acute infiltrate could be appreciated. ASSESSMENT AND PLAN: This is a very pleasant 86-year-old female, admitted to Cardiology Service with [id number] congestive heart failure exacerbation as well as paroxysmal atrial fibrillation. 1. Chronic obstructive pulmonary disease exacerbation with acute bronchitis. The patient is going to be placed on oxygen, IV steroids, Solu-Medrol 60 mg IV every six hours, DuoNebs with aggressive pulmonary toilet, Dulera, Mucinex, Nasonex, Tessalon Perles p.r.n. We are checking a sputum Gram stain and cultures as well. Further workup and recommendation pending above. Thank you for consult. We are going to continue to follow with you. It is also to note that the patient is going to be followed by Dr. Arturo Henderson. CF/MODL Sarah Cornelius M.D. / [id number] CC: Consultation Report [address] [place]. [address] NAME: SARA DALAL : 34 STATUS : ADM IN [facility]#: [id number] AGE: 86 ADM/REG DATE : 10/29/16 MR#: [id number] REPORT SERV DATE: 11/06/16 DICTATED BY: SARAH CORNELIUS DATE: 11/06/16 REPORT STATUS : Draft TRANSCRIBED BY: MODL DATE: 11/06/16 MD Nichole Hernandez MD
[~2016-10-29 14:56] MED LIST: ADVAIR250 INH; ALPRAZOLAM PO; ASAB PO; CALCIUM PO; CALTRA600D PO; CELEXA20 PO; COREG12 PO; FLEXI JOIN1 PO; GLUCCHONDR PO; HYDROCHLOROT12.5 MG PO; KLOR-CON PO; LEXAPRO10 PO; MAGNEBIND300 MG PO; MICRO-K10 MEQ PO; MOBIC15 MG PO; OMEPRAZOLE PO; ORPHENADRINE100 MG PO; PRILO PO; PRIN10 PO; RESTASIS OPH; V120 PO; VERAPAMIL PO; VERELAN240 MG PO; VITAMIN B-12 PO; VITAMIN D1000 UNI1 PO; VITAMIN D31000 UNIT PO; VITC500 PO; XANAX1 MG PO; [UNRECOGNIZED DRUG - OTHER] PO; [UNRECOGNIZED DRUG - OTHER] PO; [UNRECOGNIZED DRUG - OTHER] PO
[2016-10-29 15:24] LABS: BASOPHILS 0.4 %; BASOPHILS ABSOLUTE 0.03 10/3/uL (0.0-0.16); EOSINOPHILS 1.3 %; ER CBC TAT 0 Hrs 05 Mins; HEMATOCRIT 38.5 % (36.0-48.0); HEMOGLOBIN 12.3 g/dL (12.0-16.0); IMMATURE GRANULOCYTES 0.3 %; IMMATURE GRANULOCYTES ABSOLUTE 0.02 10/3/uL (0.0-0.11); LYMPHOCYTES 18.3 %; MANUAL DIFF NO %; MEAN CORPUS HGB CONC 31.9 g/dL (32.0-36.0); MEAN CORPUSCULAR HEMOGLOB 29.1 pg (26.0-34.0); MEAN PLATELET VOLUME 10.5 fL (9.2-13.0); MONOCYTES 11.6 %; MONOCYTES ABSOLUTE 0.89 10/3/uL (0.21-1.20); NEUTROPHILS 68.1 %; NEUTROPHILS ABSOLUTE 5.22 10/3/uL (2.02-8.40); PLATELET COUNT 146 10/3/uL (150-400); RED CELL COUNT 4.23 10/6/uL (4.0-5.6); WHITE BLOOD CELLS 7.7 10/3/uL (4.5-10.5)
[2016-10-29 15:41] LABS: CALCIUM, SERUM 8.9 MG/DL (8.5-10.4); CHEST PAIN PROFILE TAT 0 Hrs 22 Mins; CHLORIDE, SERUM 110 MMOL/L (96-112); CREATININE 1.05 MG/DL (0.55-1.02); GFR AFRICAN AMERICAN 56 ML/MIN (>=60); GFR NON AFRICAN AMERICAN 49 ML/MIN (>=60); GLUCOSE, SERUM 96 MG/DL (60-99); INTERNATIONAL NORMAL RATI 1.6 UNITS (-); PARTIAL THROMBO TIME 30.1 SEC (22.5-37.2); POTASSIUM, SERUM 4.4 MMOL/L (3.5-5.3); PROTIME (NOT ORD) 19.1 SEC (12.0-14.5); SODIUM, SERUM 148 MMOL/L (135-148); TROPONIN I <0.02 NG/ML (<0.05)
[2016-10-29 15:42] LABS: BUN (BLOOD UREA NITROGEN) 29 MG/DL (6-23); CO2 (CARBON DIOXIDE) 28 MMOL/L (24-34)
[2016-10-29 17:57] LABS: ASCORBIC ACID (UR NOT ORDER) NEG (NEG); BILIRUBIN, URINE NEGATIVE (NEG); ER URINALYSIS TAT 0 Hrs 13 Mins; KETONE, URINE NEGATIVE (NEG); LEUKOCYTE ESTERASE(NOT OR MOD (NEG); NITRITE (URINE) NEG (NEG); WBC (NOT ORDERED) (RFLEX) 38 (0-5)
[2016-10-29] MEDS ORDERED: ELIQUIS 5 MG TAB5 MG PO (18:48)
[2016-10-29] MEDS ORDERED: PRIN5 PO (18:49)
[2016-10-29] MEDS ORDERED: LEXAPRO10 PO (18:49)
[2016-10-29] MEDS ORDERED: TOPXL100 PO (18:49)
[2016-10-29] MEDS ORDERED: ULTRAM50 PO (18:52)
[2016-10-29] MEDS ORDERED: XANAX1 MG PO (18:53)
[2016-10-29] MEDS ORDERED: VITAMIN D1000 UNI1 PO (18:53)
[2016-10-29] MEDS ORDERED: ASAB PO (18:53)
[2016-10-29] MEDS ORDERED: ADVAIR250 INH (18:54)
[2016-10-29] MEDS ORDERED: RESTASIS OPH (18:54)
[2016-10-29] MEDS ORDERED: PRILO PO (18:54)
[2016-10-29] MEDS ORDERED: VENTOLIN HFA INH (18:55)
[2016-10-29] MEDS ORDERED: ALBUTEROL0.083 % INH (18:55)
[2016-10-29 23:58] LABS: FREE T4 1.28 NG/DL (0.76-1.46)
[2016-10-30] LABS: ULTRASENSITIVE TSH 1.2 MCIU/ML (0.358-3.740)
[2016-10-30 05:19] LABS: CALCIUM, SERUM 8.7 MG/DL (8.5-10.4); CHLORIDE, SERUM 109 MMOL/L (96-112); CO2 (CARBON DIOXIDE) 26 MMOL/L (24-34); GFR AFRICAN AMERICAN 68 ML/MIN (>=60); GFR NON AFRICAN AMERICAN 59 ML/MIN (>=60); GLUCOSE, SERUM 99 MG/DL (60-99); POTASSIUM, SERUM 4.4 MMOL/L (3.5-5.3); SODIUM, SERUM 148 MMOL/L (135-148)
[2016-10-30 05:25] LABS: BUN (BLOOD UREA NITROGEN) 25 MG/DL (6-23)
[2016-10-30 05:41] LABS: BASOPHILS 0.7 %; BASOPHILS ABSOLUTE 0.05 10/3/uL (0.0-0.16); EOSINOPHILS 2.5 %; EOSINOPHILS ABSOLUTE 0.18 10/3/uL (0.0-0.53); HEMOGLOBIN 11.2 g/dL (12.0-16.0); IMMATURE GRANULOCYTES 0.3 %; IMMATURE GRANULOCYTES ABSOLUTE 0.02 10/3/uL (0.0-0.11); LYMPHOCYTES 19.2 %; LYMPHOCYTES ABSOLUTE 1.37 10/3/uL (0.67-4.30); MANUAL DIFF NO %; MEAN CORPUS HGB CONC 31.1 g/dL (32.0-36.0); MEAN CORPUSCULAR HEMOGLOB 28.2 pg (26.0-34.0); MEAN CORPUSCULAR VOLUME 90.7 fL (80-100); MEAN PLATELET VOLUME 11.1 fL (9.2-13.0); MONOCYTES 10.3 %; MONOCYTES ABSOLUTE 0.73 10/3/uL (0.21-1.20); NEUTROPHILS ABSOLUTE 4.77 10/3/uL (2.02-8.40); PLATELET COUNT 129 10/3/uL (150-400); RBC DISTRIBUTION WIDTH 15.6 % (12.0-16.0); RED CELL COUNT 3.97 10/6/uL (4.0-5.6); WHITE BLOOD CELLS 7.1 10/3/uL (4.5-10.5)
[2016-10-31 05:16] LABS: BASOPHILS 0.4 %; BASOPHILS ABSOLUTE 0.03 10/3/uL (0.0-0.16); EOSINOPHILS 3.2 %; EOSINOPHILS ABSOLUTE 0.24 10/3/uL (0.0-0.53); HEMATOCRIT 35.5 % (36.0-48.0); HEMOGLOBIN 11.1 g/dL (12.0-16.0); IMMATURE GRANULOCYTES 0.3 %; IMMATURE GRANULOCYTES ABSOLUTE 0.02 10/3/uL (0.0-0.11); LYMPHOCYTES 18.1 %; LYMPHOCYTES ABSOLUTE 1.36 10/3/uL (0.67-4.30); MEAN CORPUS HGB CONC 31.3 g/dL (32.0-36.0); MEAN CORPUSCULAR HEMOGLOB 28.5 pg (26.0-34.0); MEAN PLATELET VOLUME 10.9 fL (9.2-13.0); MONOCYTES ABSOLUTE 0.83 10/3/uL (0.21-1.20); NEUTROPHILS ABSOLUTE 5.05 10/3/uL (2.02-8.40); PLATELET COUNT 139 10/3/uL (150-400); RBC DISTRIBUTION WIDTH 15.4 % (12.0-16.0); WHITE BLOOD CELLS 7.5 10/3/uL (4.5-10.5)
[2016-10-31 05:24] LABS: MANUAL DIFF NO %
[2016-10-31 05:43] LABS: CALCIUM, SERUM 8.4 MG/DL (8.5-10.4); CHLORIDE, SERUM 106 MMOL/L (96-112); CO2 (CARBON DIOXIDE) 27 MMOL/L (24-34); GFR AFRICAN AMERICAN 33 ML/MIN (>=60); GFR NON AFRICAN AMERICAN 29 ML/MIN (>=60); GLUCOSE, SERUM 112 MG/DL (60-99); POTASSIUM, SERUM 4.3 MMOL/L (3.5-5.3); SODIUM, SERUM 147 MMOL/L (135-148)
[2016-10-31 05:45] LABS: BUN (BLOOD UREA NITROGEN) 32 MG/DL (6-23); CREATININE 1.62 MG/DL (0.55-1.02)
[2016-11-01 05:01] LABS: BASOPHILS 0.4 %; BASOPHILS ABSOLUTE 0.03 10/3/uL (0.0-0.16); EOSINOPHILS 2.7 %; EOSINOPHILS ABSOLUTE 0.19 10/3/uL (0.0-0.53); HEMATOCRIT 34.4 % (36.0-48.0); HEMOGLOBIN 10.7 g/dL (12.0-16.0); IMMATURE GRANULOCYTES 0.1 %; IMMATURE GRANULOCYTES ABSOLUTE 0.01 10/3/uL (0.0-0.11); LYMPHOCYTES 17.8 %; LYMPHOCYTES ABSOLUTE 1.27 10/3/uL (0.67-4.30); MANUAL DIFF NO %; MEAN CORPUS HGB CONC 31.1 g/dL (32.0-36.0); MEAN CORPUSCULAR HEMOGLOB 28.5 pg (26.0-34.0); MEAN CORPUSCULAR VOLUME 91.5 fL (80-100); MEAN PLATELET VOLUME 11.3 fL (9.2-13.0); MONOCYTES 10.5 %; MONOCYTES ABSOLUTE 0.75 10/3/uL (0.21-1.20); NEUTROPHILS 68.5 %; NEUTROPHILS ABSOLUTE 4.87 10/3/uL (2.02-8.40); PLATELET COUNT 167 10/3/uL (150-400); RBC DISTRIBUTION WIDTH 15.5 % (12.0-16.0); RED CELL COUNT 3.76 10/6/uL (4.0-5.6); WHITE BLOOD CELLS 7.1 10/3/uL (4.5-10.5)
[2016-11-01 05:17] LABS: CALCIUM, SERUM 8.7 MG/DL (8.5-10.4); CHLORIDE, SERUM 103 MMOL/L (96-112); CO2 (CARBON DIOXIDE) 29 MMOL/L (24-34); CREATININE 1.99 MG/DL (0.55-1.02); GFR AFRICAN AMERICAN 26 ML/MIN (>=60); GFR NON AFRICAN AMERICAN 22 ML/MIN (>=60); GLUCOSE, SERUM 122 MG/DL (60-99); POTASSIUM, SERUM 4.4 MMOL/L (3.5-5.3); SODIUM, SERUM 142 MMOL/L (135-148)
[2016-11-01 05:20] LABS: BUN (BLOOD UREA NITROGEN) 38 MG/DL (6-23)
[2016-11-02 04:47] LABS: BASOPHILS 0.5 %; BASOPHILS ABSOLUTE 0.03 10/3/uL (0.0-0.16); EOSINOPHILS 3.1 %; EOSINOPHILS ABSOLUTE 0.19 10/3/uL (0.0-0.53); HEMATOCRIT 36.1 % (36.0-48.0); HEMOGLOBIN 11.3 g/dL (12.0-16.0); IMMATURE GRANULOCYTES 0.2 %; IMMATURE GRANULOCYTES ABSOLUTE 0.01 10/3/uL (0.0-0.11); LYMPHOCYTES 15.3 %; LYMPHOCYTES ABSOLUTE 0.93 10/3/uL (0.67-4.30); MEAN CORPUS HGB CONC 31.3 g/dL (32.0-36.0); MEAN CORPUSCULAR HEMOGLOB 28.8 pg (26.0-34.0); MEAN CORPUSCULAR VOLUME 91.9 fL (80-100); MEAN PLATELET VOLUME 11.1 fL (9.2-13.0); MONOCYTES 11.5 %; NEUTROPHILS 69.4 %; NEUTROPHILS ABSOLUTE 4.23 10/3/uL (2.02-8.40); PLATELET COUNT 177 10/3/uL (150-400); RBC DISTRIBUTION WIDTH 15.4 % (12.0-16.0); RED CELL COUNT 3.93 10/6/uL (4.0-5.6); WHITE BLOOD CELLS 6.1 10/3/uL (4.5-10.5)
[2016-11-02 04:48] LABS: MANUAL DIFF NO %
[2016-11-02 05:06] LABS: CALCIUM, SERUM 8.9 MG/DL (8.5-10.4); CHLORIDE, SERUM 106 MMOL/L (96-112); CO2 (CARBON DIOXIDE) 31 MMOL/L (24-34); GLUCOSE, SERUM 105 MG/DL (60-99); POTASSIUM, SERUM 4.8 MMOL/L (3.5-5.3); SGOT(AST) 13 U/L (5-40); SGPT(ALT) 22 U/L (5-65); SODIUM, SERUM 145 MMOL/L (135-148); TOTAL BILIRUBIN 0.7 MG/DL (0-1.2); TOTAL PROTEIN 5.5 G/DL (6.0-8.5)
[2016-11-02 05:07] LABS: A/G RATIO 1.1 (0.7-1.9); ALBUMIN 2.9 G/DL (3.5-5.0); ALKALINE PHOSPHATASE 65 U/L (45-117); BUN (BLOOD UREA NITROGEN) 33 MG/DL (6-23); CREATININE 1.37 MG/DL (0.55-1.02); GFR AFRICAN AMERICAN 41 ML/MIN (>=60); GFR NON AFRICAN AMERICAN 35 ML/MIN (>=60); GLOBULIN 2.6 G/DL (2.5-4.1)
[2016-11-02 05:29] LABS: T PROTEIN (ELECT)(NOT OR 5.5 G/DL (6.0-8.5)
[2016-11-02 11:42] LABS: A/G 1.67 RATIO (0.9-2.10); ALB RELATIVE % 62.6 % (60.0-89.0); ALBUMIN (ELECTRO) 3.44 GM/DL (3.2-5.5); ALPHA 1 (ELECTRO) 0.22 GM/DL (0.1-0.4); ALPHA 2 (ELECTRO) 0.63 GM/DL (0.5-1.10); ALPHA 2 RELAT % 11.4 % (4.5-26.0); BETA GLOBULIN (SPE) 0.63 GM/DL (0.60-1.30); BETA RELATIVE % 11.5 % (9.0-22.0); GAMMA GLOBULIN (SPE) 0.58 G/DL (0.70-1.60); GAMMA RELAT % 10.5 % (6.0-22.0)
[2016-11-03 07:16] LABS: BASOPHILS 0.7 %; BASOPHILS ABSOLUTE 0.04 10/3/uL (0.0-0.16); EOSINOPHILS 3.5 %; EOSINOPHILS ABSOLUTE 0.21 10/3/uL (0.0-0.53); HEMATOCRIT 39.2 % (36.0-48.0); HEMOGLOBIN 12.1 g/dL (12.0-16.0); IMMATURE GRANULOCYTES 0.2 %; IMMATURE GRANULOCYTES ABSOLUTE 0.01 10/3/uL (0.0-0.11); LYMPHOCYTES 20.4 %; LYMPHOCYTES ABSOLUTE 1.24 10/3/uL (0.67-4.30); MEAN CORPUS HGB CONC 30.9 g/dL (32.0-36.0); MEAN CORPUSCULAR HEMOGLOB 28.7 pg (26.0-34.0); MEAN CORPUSCULAR VOLUME 92.9 fL (80-100); MONOCYTES ABSOLUTE 0.67 10/3/uL (0.21-1.20); NEUTROPHILS 64.2 %; PLATELET COUNT 183 10/3/uL (150-400); RBC DISTRIBUTION WIDTH 15.2 % (12.0-16.0); RED CELL COUNT 4.22 10/6/uL (4.0-5.6); WHITE BLOOD CELLS 6.1 10/3/uL (4.5-10.5)
[2016-11-03 07:22] LABS: MANUAL DIFF NO %
[2016-11-03 07:27] LABS: CHLORIDE, SERUM 100 MMOL/L (96-112); CREATININE 1.03 MG/DL (0.55-1.02); GFR AFRICAN AMERICAN 58 ML/MIN (>=60); GFR NON AFRICAN AMERICAN 50 ML/MIN (>=60); GLUCOSE, SERUM 90 MG/DL (60-99); POTASSIUM, SERUM 4.6 MMOL/L (3.5-5.3); SODIUM, SERUM 145 MMOL/L (135-148)
[2016-11-03 07:29] LABS: BUN (BLOOD UREA NITROGEN) 28 MG/DL (6-23); CO2 (CARBON DIOXIDE) 39 MMOL/L (24-34)
[2016-11-04 05:26] LABS: BASOPHILS 0.4 %; BASOPHILS ABSOLUTE 0.03 10/3/uL (0.0-0.16); EOSINOPHILS 2.6 %; EOSINOPHILS ABSOLUTE 0.19 10/3/uL (0.0-0.53); HEMATOCRIT 38.6 % (36.0-48.0); IMMATURE GRANULOCYTES 0.3 %; IMMATURE GRANULOCYTES ABSOLUTE 0.02 10/3/uL (0.0-0.11); LYMPHOCYTES 15.7 %; LYMPHOCYTES ABSOLUTE 1.17 10/3/uL (0.67-4.30); MEAN CORPUS HGB CONC 31.1 g/dL (32.0-36.0); MEAN CORPUSCULAR HEMOGLOB 28.6 pg (26.0-34.0); MEAN CORPUSCULAR VOLUME 92.1 fL (80-100); MEAN PLATELET VOLUME 10.9 fL (9.2-13.0); MONOCYTES 10.8 %; NEUTROPHILS 70.2 %; NEUTROPHILS ABSOLUTE 5.22 10/3/uL (2.02-8.40); PLATELET COUNT 159 10/3/uL (150-400); RBC DISTRIBUTION WIDTH 14.8 % (12.0-16.0); RED CELL COUNT 4.19 10/6/uL (4.0-5.6); WHITE BLOOD CELLS 7.4 10/3/uL (4.5-10.5)
[2016-11-04 05:27] LABS: MANUAL DIFF NO %
[2016-11-04 05:31] LABS: INTERNATIONAL NORMAL RATI 1.3 UNITS (-); PROTIME (NOT ORD) 16.3 SEC (12.0-14.5)
[2016-11-04 05:46] LABS: BUN (BLOOD UREA NITROGEN) 29 MG/DL (6-23); CALCIUM, SERUM 8.8 MG/DL (8.5-10.4); CHLORIDE, SERUM 95 MMOL/L (96-112); CHOL/HDL RATIO(NOT ORDER) 2.1 (0-5); CHOLESTEROL 90 MG/DL (< 200); CO2 (CARBON DIOXIDE) 38 MMOL/L (24-34); CREATININE 0.96 MG/DL (0.55-1.02); GFR AFRICAN AMERICAN 63 ML/MIN (>=60); GFR NON AFRICAN AMERICAN 54 ML/MIN (>=60); GLUCOSE, SERUM 103 MG/DL (60-99); HDL CHOLESTEROL 42 MG/DL (> 49); LDL CHOLESTEROL 39 MG/DL (< 130); NON-HDL CHOLESTEROL 48 MG/DL (< 160); POTASSIUM, SERUM 4.2 MMOL/L (3.5-5.3); SODIUM, SERUM 143 MMOL/L (135-148); TRIGLYCERIDE 47 MG/DL (< 150)
[2016-11-05 05:15] LABS: BASOPHILS 0.8 %; BASOPHILS ABSOLUTE 0.05 10/3/uL (0.0-0.16); EOSINOPHILS ABSOLUTE 0.13 10/3/uL (0.0-0.53); HEMOGLOBIN 12.7 g/dL (12.0-16.0); IMMATURE GRANULOCYTES 0.2 %; IMMATURE GRANULOCYTES ABSOLUTE 0.01 10/3/uL (0.0-0.11); LYMPHOCYTES 17.9 %; LYMPHOCYTES ABSOLUTE 1.15 10/3/uL (0.67-4.30); MANUAL DIFF NO %; MEAN CORPUSCULAR HEMOGLOB 28.7 pg (26.0-34.0); MEAN CORPUSCULAR VOLUME 92.6 fL (80-100); MEAN PLATELET VOLUME 11.4 fL (9.2-13.0); MONOCYTES 11.8 %; MONOCYTES ABSOLUTE 0.76 10/3/uL (0.21-1.20); NEUTROPHILS 67.3 %; NEUTROPHILS ABSOLUTE 4.33 10/3/uL (2.02-8.40); PLATELET COUNT 161 10/3/uL (150-400); RBC DISTRIBUTION WIDTH 14.7 % (12.0-16.0); RED CELL COUNT 4.43 10/6/uL (4.0-5.6); WHITE BLOOD CELLS 6.4 10/3/uL (4.5-10.5)
[2016-11-05 05:26] LABS: BUN (BLOOD UREA NITROGEN) 29 MG/DL (6-23); CALCIUM, SERUM 8.5 MG/DL (8.5-10.4); CHLORIDE, SERUM 99 MMOL/L (96-112); CO2 (CARBON DIOXIDE) 40 MMOL/L (24-34); CREATININE 1.05 MG/DL (0.55-1.02); GFR AFRICAN AMERICAN 56 ML/MIN (>=60); GFR NON AFRICAN AMERICAN 49 ML/MIN (>=60); GLUCOSE, SERUM 98 MG/DL (60-99); SODIUM, SERUM 143 MMOL/L (135-148)
[2016-11-05 05:30] LABS: POTASSIUM, SERUM 4.3 MMOL/L (3.5-5.3)
[2016-11-06 05:21] LABS: BASOPHILS 0.2 %; BASOPHILS ABSOLUTE 0.01 10/3/uL (0.0-0.16); EOSINOPHILS 0.2 %; EOSINOPHILS ABSOLUTE 0.01 10/3/uL (0.0-0.53); HEMATOCRIT 39.7 % (36.0-48.0); HEMOGLOBIN 12.4 g/dL (12.0-16.0); IMMATURE GRANULOCYTES 0.2 %; IMMATURE GRANULOCYTES ABSOLUTE 0.01 10/3/uL (0.0-0.11); LYMPHOCYTES 13.7 %; MEAN CORPUS HGB CONC 31.2 g/dL (32.0-36.0); MEAN CORPUSCULAR HEMOGLOB 28.4 pg (26.0-34.0); MEAN CORPUSCULAR VOLUME 91.1 fL (80-100); MEAN PLATELET VOLUME 11.3 fL (9.2-13.0); MONOCYTES 1.4 %; MONOCYTES ABSOLUTE 0.06 10/3/uL (0.21-1.20); NEUTROPHILS 84.3 %; NEUTROPHILS ABSOLUTE 3.68 10/3/uL (2.02-8.40); PLATELET COUNT 156 10/3/uL (150-400); RBC DISTRIBUTION WIDTH 14.1 % (12.0-16.0); RED CELL COUNT 4.36 10/6/uL (4.0-5.6); WHITE BLOOD CELLS 4.4 10/3/uL (4.5-10.5)
[2016-11-06 05:22] LABS: MANUAL DIFF NO %
[2016-11-06 05:28] LABS: BUN (BLOOD UREA NITROGEN) 31 MG/DL (6-23); CHLORIDE, SERUM 99 MMOL/L (96-112); CO2 (CARBON DIOXIDE) 38 MMOL/L (24-34); CREATININE 1.03 MG/DL (0.55-1.02); GFR AFRICAN AMERICAN 58 ML/MIN (>=60); GFR NON AFRICAN AMERICAN 50 ML/MIN (>=60); GLUCOSE, SERUM 160 MG/DL (60-99); POTASSIUM, SERUM 4.2 MMOL/L (3.5-5.3); SODIUM, SERUM 142 MMOL/L (135-148)
[2016-11-07 06:57] LABS: BASOPHILS 0 %; EOSINOPHILS 0 %; HEMATOCRIT 37.5 % (36.0-48.0); IMMATURE GRANULOCYTES 0.1 %; IMMATURE GRANULOCYTES ABSOLUTE 0.01 10/3/uL (0.0-0.11); LYMPHOCYTES 6.4 %; LYMPHOCYTES ABSOLUTE 0.57 10/3/uL (0.67-4.30); MEAN CORPUSCULAR HEMOGLOB 28.6 pg (26.0-34.0); MEAN CORPUSCULAR VOLUME 89.5 fL (80-100); MEAN PLATELET VOLUME 11.3 fL (9.2-13.0); MONOCYTES 1.7 %; MONOCYTES ABSOLUTE 0.15 10/3/uL (0.21-1.20); NEUTROPHILS 91.8 %; PLATELET COUNT 161 10/3/uL (150-400); RBC DISTRIBUTION WIDTH 14.3 % (12.0-16.0); RED CELL COUNT 4.19 10/6/uL (4.0-5.6)
[2016-11-07 06:58] LABS: BUN (BLOOD UREA NITROGEN) 37 MG/DL (6-23); CALCIUM, SERUM 8.7 MG/DL (8.5-10.4); CHLORIDE, SERUM 100 MMOL/L (96-112); CO2 (CARBON DIOXIDE) 37 MMOL/L (24-34); CREATININE 1.01 MG/DL (0.55-1.02); GFR AFRICAN AMERICAN 59 ML/MIN (>=60); GFR NON AFRICAN AMERICAN 51 ML/MIN (>=60); GLUCOSE, SERUM 155 MG/DL (60-99); MANUAL DIFF NO %; SODIUM, SERUM 142 MMOL/L (135-148); WHITE BLOOD CELLS 8.9 10/3/uL (4.5-10.5)
[2016-11-08 04:58] LABS: BASOPHILS 0.1 %; BASOPHILS ABSOLUTE 0.01 10/3/uL (0.0-0.16); EOSINOPHILS 0 %; HEMOGLOBIN 12.2 g/dL (12.0-16.0); IMMATURE GRANULOCYTES 0.3 %; IMMATURE GRANULOCYTES ABSOLUTE 0.03 10/3/uL (0.0-0.11); LYMPHOCYTES 3.6 %; LYMPHOCYTES ABSOLUTE 0.39 10/3/uL (0.67-4.30); MEAN CORPUS HGB CONC 31.3 g/dL (32.0-36.0); MEAN CORPUSCULAR HEMOGLOB 28.4 pg (26.0-34.0); MEAN CORPUSCULAR VOLUME 90.7 fL (80-100); MEAN PLATELET VOLUME 11.4 fL (9.2-13.0); MONOCYTES ABSOLUTE 0.21 10/3/uL (0.21-1.20); NEUTROPHILS ABSOLUTE 10.08 10/3/uL (2.02-8.40); PLATELET COUNT 169 10/3/uL (150-400); RBC DISTRIBUTION WIDTH 14.2 % (12.0-16.0); WHITE BLOOD CELLS 10.7 10/3/uL (4.5-10.5)
[2016-11-08 05:03] LABS: INTERNATIONAL NORMAL RATI 1.5 UNITS (-); MANUAL DIFF NO %; PROTIME (NOT ORD) 18.2 SEC (12.0-14.5)
[2016-11-08 05:09] LABS: CALCIUM, SERUM 8.5 MG/DL (8.5-10.4); CHLORIDE, SERUM 102 MMOL/L (96-112); CO2 (CARBON DIOXIDE) 35 MMOL/L (24-34); CREATININE 1.07 MG/DL (0.55-1.02); GFR AFRICAN AMERICAN 55 ML/MIN (>=60); GFR NON AFRICAN AMERICAN 48 ML/MIN (>=60); GLUCOSE, SERUM 174 MG/DL (60-99); POTASSIUM, SERUM 4.4 MMOL/L (3.5-5.3); SODIUM, SERUM 142 MMOL/L (135-148)
[2016-11-08 05:15] LABS: BUN (BLOOD UREA NITROGEN) 42 MG/DL (6-23); C-REACTIVE PROTEIN < 2.9 MG/L (<8.0)
[2016-11-09 04:57] LABS: BASOPHILS 0.1 %; BASOPHILS ABSOLUTE 0.01 10/3/uL (0.0-0.16); EOSINOPHILS 0 %; HEMATOCRIT 38.9 % (36.0-48.0); HEMOGLOBIN 12.2 g/dL (12.0-16.0); IMMATURE GRANULOCYTES 0.2 %; IMMATURE GRANULOCYTES ABSOLUTE 0.02 10/3/uL (0.0-0.11); LYMPHOCYTES 4.2 %; LYMPHOCYTES ABSOLUTE 0.36 10/3/uL (0.67-4.30); MANUAL DIFF NO %; MEAN CORPUS HGB CONC 31.4 g/dL (32.0-36.0); MEAN CORPUSCULAR HEMOGLOB 28.3 pg (26.0-34.0); MEAN CORPUSCULAR VOLUME 90.3 fL (80-100); MEAN PLATELET VOLUME 11.3 fL (9.2-13.0); MONOCYTES 4.1 %; MONOCYTES ABSOLUTE 0.35 10/3/uL (0.21-1.20); NEUTROPHILS 91.4 %; NEUTROPHILS ABSOLUTE 7.87 10/3/uL (2.02-8.40); PLATELET COUNT 165 10/3/uL (150-400); RBC DISTRIBUTION WIDTH 14.1 % (12.0-16.0); RED CELL COUNT 4.31 10/6/uL (4.0-5.6); WHITE BLOOD CELLS 8.6 10/3/uL (4.5-10.5)
[2016-11-09 05:05] LABS: BUN (BLOOD UREA NITROGEN) 42 MG/DL (6-23); CHLORIDE, SERUM 98 MMOL/L (96-112); CO2 (CARBON DIOXIDE) 36 MMOL/L (24-34); GFR AFRICAN AMERICAN 48 ML/MIN (>=60); GFR NON AFRICAN AMERICAN 41 ML/MIN (>=60); GLUCOSE, SERUM 171 MG/DL (60-99); POTASSIUM, SERUM 3.8 MMOL/L (3.5-5.3); SODIUM, SERUM 141 MMOL/L (135-148)
[2016-11-10 05:14] LABS: BUN (BLOOD UREA NITROGEN) 41 MG/DL (6-23); CHLORIDE, SERUM 99 MMOL/L (96-112); CO2 (CARBON DIOXIDE) 35 MMOL/L (24-34); CREATININE 1.08 MG/DL (0.55-1.02); GFR AFRICAN AMERICAN 55 ML/MIN (>=60); GFR NON AFRICAN AMERICAN 47 ML/MIN (>=60); GLUCOSE, SERUM 192 MG/DL (60-99); POTASSIUM, SERUM 4.4 MMOL/L (3.5-5.3); SODIUM, SERUM 141 MMOL/L (135-148)
[2016-11-10 05:22] LABS: CALCIUM, SERUM 9.1 MG/DL (8.5-10.4)
[2016-11-11 06:35] LABS: BUN (BLOOD UREA NITROGEN) 43 MG/DL (6-23); CALCIUM, SERUM 8.8 MG/DL (8.5-10.4); CHLORIDE, SERUM 101 MMOL/L (96-112); CO2 (CARBON DIOXIDE) 38 MMOL/L (24-34); CREATININE 1.21 MG/DL (0.55-1.02); GFR AFRICAN AMERICAN 48 ML/MIN (>=60); GFR NON AFRICAN AMERICAN 41 ML/MIN (>=60); GLUCOSE, SERUM 160 MG/DL (60-99); POTASSIUM, SERUM 3.8 MMOL/L (3.5-5.3); SODIUM, SERUM 141 MMOL/L (135-148)
[2016-11-12 05:28] LABS: CALCIUM, SERUM 8.5 MG/DL (8.5-10.4); CHLORIDE, SERUM 98 MMOL/L (96-112); CO2 (CARBON DIOXIDE) 38 MMOL/L (24-34); CREATININE 1.21 MG/DL (0.55-1.02); GFR AFRICAN AMERICAN 48 ML/MIN (>=60); GFR NON AFRICAN AMERICAN 41 ML/MIN (>=60); GLUCOSE, SERUM 136 MG/DL (60-99); SODIUM, SERUM 142 MMOL/L (135-148)
[2016-11-12 05:43] LABS: BASOPHILS 0.2 %; BASOPHILS ABSOLUTE 0.02 10/3/uL (0.0-0.16); EOSINOPHILS 0 %; HEMOGLOBIN 13.7 g/dL (12.0-16.0); IMMATURE GRANULOCYTES ABSOLUTE 0.12 10/3/uL (0.0-0.11); LYMPHOCYTES 6.8 %; LYMPHOCYTES ABSOLUTE 0.82 10/3/uL (0.67-4.30); MEAN CORPUS HGB CONC 31.7 g/dL (32.0-36.0); MEAN CORPUSCULAR HEMOGLOB 28.2 pg (26.0-34.0); MEAN CORPUSCULAR VOLUME 88.9 fL (80-100); MEAN PLATELET VOLUME 11.2 fL (9.2-13.0); MONOCYTES 7.3 %; MONOCYTES ABSOLUTE 0.88 10/3/uL (0.21-1.20); NEUTROPHILS 84.7 %; NEUTROPHILS ABSOLUTE 10.16 10/3/uL (2.02-8.40); PLATELET COUNT 181 10/3/uL (150-400); RBC DISTRIBUTION WIDTH 13.7 % (12.0-16.0); RED CELL COUNT 4.86 10/6/uL (4.0-5.6)
[2016-11-12 05:44] LABS: BUN (BLOOD UREA NITROGEN) 39 MG/DL (6-23); HEMATOCRIT 43.2 % (36.0-48.0); MANUAL DIFF NO %
[2016-11-12 14:42] LABS: BD FL LYMPH (NOT ORD) 0 %; BF BASO (NOT OF) 0 %; BF LARGE MONONUCLEAR 73 %; BODY FLUID EOS (NOT ORD) 0 %; BODY FLUID SEG (NOT ORD) 27 %
[2016-11-12 14:43] LABS: BODY FLUID RBC (NOT ORD) 2000 /MM3
[2016-11-12 14:44] LABS: BD FL SOURCE (NOT ORD) BAL LLL
[2016-11-12 14:46] LABS: BF TOTAL CELL CT (NOT ORD 1180 /MM3
[2016-11-13 04:48] LABS: HEMATOCRIT 43.9 % (36.0-48.0); HEMOGLOBIN 13.9 g/dL (12.0-16.0); MEAN CORPUS HGB CONC 31.7 g/dL (32.0-36.0); MEAN CORPUSCULAR HEMOGLOB 28.3 pg (26.0-34.0); MEAN CORPUSCULAR VOLUME 89.4 fL (80-100); MEAN PLATELET VOLUME 10.7 fL (9.2-13.0); PLATELET COUNT 167 10/3/uL (150-400); RBC DISTRIBUTION WIDTH 13.8 % (12.0-16.0); RED CELL COUNT 4.91 10/6/uL (4.0-5.6); WHITE BLOOD CELLS 13.8 10/3/uL (4.5-10.5)
[2016-11-13 04:58] LABS: BUN (BLOOD UREA NITROGEN) 32 MG/DL (6-23); CALCIUM, SERUM 8.4 MG/DL (8.5-10.4); CHLORIDE, SERUM 101 MMOL/L (96-112); CO2 (CARBON DIOXIDE) 37 MMOL/L (24-34); CREATININE 1.09 MG/DL (0.55-1.02); GFR AFRICAN AMERICAN 54 ML/MIN (>=60); GFR NON AFRICAN AMERICAN 47 ML/MIN (>=60); GLUCOSE, SERUM 92 MG/DL (60-99); POTASSIUM, SERUM 3.7 MMOL/L (3.5-5.3); SODIUM, SERUM 146 MMOL/L (135-148)
[2016-11-13 05:08] LABS: EOSINOPHILS 1 %; EOSINOPHILS ABSOLUTE (CALC) 0.14 10/3/uL (0.0-0.53); LYMPHOCYTES 4 %; LYMPHOCYTES ABSOLUTE (CALC) 0.55 10/3/uL (0.67-4.30); MONOCYTES 5 %; MONOCYTES ABSOLUTE (CALC) 0.69 10/3/uL (0.21-1.20); NEUTROPHILS ABSOLUTE (CALC) 12.42 10/3/uL (2.02-8.40); PLATELET ESTIMATE ADQ (ADEQUATE); RBC MORPHOLOGY NORM (NORMAL); SEGMENTED NEUTROPHIL (0) 90 %; TOTAL NUCLEATED CELLS 100
[2016-11-13 05:49] LABS: DIFFERENTIAL ORDERED YES
[2016-11-13 09:00] LABS: HEMATOCRIT 44.8 % (36.0-48.0); HEMOGLOBIN 14.1 g/dL (12.0-16.0)
[2016-11-13 22:00] LABS: HEMATOCRIT 45.3 % (36.0-48.0); HEMOGLOBIN 14.8 g/dL (12.0-16.0)
[2016-11-14 08:36] LABS: BUN (BLOOD UREA NITROGEN) 24 MG/DL (6-23); CALCIUM, SERUM 8.2 MG/DL (8.5-10.4); CHLORIDE, SERUM 100 MMOL/L (96-112); CO2 (CARBON DIOXIDE) 39 MMOL/L (24-34); CREATININE 1.13 MG/DL (0.55-1.02); GFR AFRICAN AMERICAN 52 ML/MIN (>=60); GFR NON AFRICAN AMERICAN 45 ML/MIN (>=60); GLUCOSE, SERUM 115 MG/DL (60-99); POTASSIUM, SERUM 3.9 MMOL/L (3.5-5.3); SODIUM, SERUM 142 MMOL/L (135-148)
[2016-11-14 08:39] LABS: HEMATOCRIT 45.4 % (36.0-48.0); HEMOGLOBIN 14.6 g/dL (12.0-16.0)
[2016-11-14 09:31] LABS: PROCALCITONIN <0.05 ng/mL (<0.5)
[2016-11-14 20:04] LABS: HEMATOCRIT 41.8 % (36.0-48.0); HEMOGLOBIN 13.7 g/dL (12.0-16.0)
[2016-11-15 06:22] LABS: BUN (BLOOD UREA NITROGEN) 28 MG/DL (6-23); CALCIUM, SERUM 8.3 MG/DL (8.5-10.4); CHLORIDE, SERUM 101 MMOL/L (96-112); CO2 (CARBON DIOXIDE) 33 MMOL/L (24-34); GFR AFRICAN AMERICAN 53 ML/MIN (>=60); GFR NON AFRICAN AMERICAN 46 ML/MIN (>=60); GLUCOSE, SERUM 118 MG/DL (60-99); POTASSIUM, SERUM 3.8 MMOL/L (3.5-5.3); SODIUM, SERUM 142 MMOL/L (135-148)
[2016-11-15] MEDS ORDERED: LIPITOR40 PO (16:51)
[2016-11-15] MEDS ORDERED: LAN125 PO (16:56)
[2016-11-15] MEDS ORDERED: FLONASE NAS (16:58)
[2016-11-15] MEDS ORDERED: L20 PO (16:58)
[2016-11-15] MEDS ORDERED: SPIRO25 PO (17:00)
[2017-02-24] MEDS ORDERED: MYRBETRIQ25 MG PO (10:01)
[2017-02-24] MEDS ORDERED: CALCIUM PO (10:05)
[2017-02-24] MEDS ORDERED: [UNRECOGNIZED DRUG - OTHER] PO (10:38)
[2017-02-25] MEDS ORDERED: SYMBICORT 160/41 INH INH (17:57)
== END 2016-11-15 18:30 | disposition home or self-care (01) | DRG 264 ==
LOC: ER 14:56 → 6NO 21:26
PROVIDERS: Anesthesiology; Emergency Medicine; Hospitalist; Internal Medicine; Internal Medicine Cardiovascular Disease; Internal Medicine Critical Care Medicine; Internal Medicine Gastroenterology; Internal Medicine Interventional Cardiology; Nurse Practitioner; Nurse Practitioner Family
PROC: 4A023N7 Measurement of Cardiac Sampling and Pressure, Left Heart, Percutaneous Approach (ICD-10-PCS; principal; 2016-11-04)
PROC: B2111ZZ Fluoroscopy of Multiple Coronary Arteries using Low Osmolar Contrast (ICD-10-PCS; 2016-11-04)
PROC: B2151ZZ Fluoroscopy of Left Heart using Low Osmolar Contrast (ICD-10-PCS; 2016-11-04)
PROC: B246ZZ4 Ultrasonography of Right and Left Heart, Transesophageal (ICD-10-PCS; 2016-11-09)
PROC: 5A2204Z Restoration of Cardiac Rhythm, Single (ICD-10-PCS; 2016-11-09)
PROC: 4B02XSZ Measurement of Cardiac Pacemaker, External Approach (ICD-10-PCS; 2016-11-09)
PROC: 0B9J8ZX Drainage of Left Lower Lung Lobe, Via Natural or Artificial Opening Endoscopic, Diagnostic (ICD-10-PCS; 2016-11-12)
DX: I11.0 Hypertensive heart disease with heart failure (principal); N17.9 Acute kidney failure, unspecified; J18.9 Pneumonia, unspecified organism; J96.11 Chronic respiratory failure with hypoxia; I42.9 Cardiomyopathy, unspecified; I48.1 Persistent atrial fibrillation; Z99.81 Dependence on supplemental oxygen; J98.11 Atelectasis; I50.43 Acute on chronic combined systolic (congestive) and diastolic (congestive) heart failure; I48.0 Paroxysmal atrial fibrillation; K22.4 Dyskinesia of esophagus; R13.10 Dysphagia, unspecified; R91.1 Solitary pulmonary nodule; R15.9 Full incontinence of feces; M19.90 Unspecified osteoarthritis, unspecified site; Z95.0 Presence of cardiac pacemaker; Z87.440 Personal history of urinary (tract) infections; Z85.3 Personal history of malignant neoplasm of breast; Z90.13 Acquired absence of bilateral breasts and nipples; Z96.653 Presence of artificial knee joint, bilateral; Z90.49 Acquired absence of other specified parts of digestive tract; Z82.49 Family history of ischemic heart disease and other diseases of the circulatory system; Z88.1 Allergy status to other antibiotic agents
CPT/HCPCS: 70490; 71020; 71250; 74220; 74230; 80048; 80053; 80061; 81001; 82565; 82962; 83735; 83880; 84145; 84155; 84165; 84439; 84443; 84484; 85007; 85014; 85018; 85025; 85027; 85610; 85730; 86140; 87015; 87070; 87086; 87102; 87116; 87205; 88112; 89051; 92610-GN; 92611-GN; 92960; 93005; 93312; 93320; 93325; 93458; 94640; 94667; 94668; 96365; 96366; 96375; 97110-GP; 97116-GP; 97161-GP; 99152; 99285; A9270-GY; C1769; C1887; C1894; C8929; J1940; J1956; J2250; J2920; J2930; J3010; Q9957; Q9967